=== PATIENT | female | born 1995 | race Caucasian/White ===

== ENCOUNTER 2018-09-04 17:24 | Emergency (ER) | payer OTHER, MEDICAID, SELFPAY ==
[2018-09-04 17:29] VITALS: BP 126/87; PULSE 89; RESP 16; TEMP 37; O2SAT 98; BMI 40.7
--- NOTE | 2018-09-04 18:34 | DI.US.S_ITS ---
PROCEDURE: US PELVIC COMPLETE INDICATIONS: PAIN TECHNIQUE: Real-time scanning was performed of the pelvic organs, with image documentation. Additional endovaginal scanning was necessary due to incomplete visualization of the adnexal and endometrial structures by transabdominal scanning. COMPARISON: None. FINDINGS: Transabdominal scanning: Limited scanning through the kidneys shows no hydronephrosis. No pathologic free abdominal or pelvic fluid. Endovaginal scanning: Uterus: Uterus is normal in size at 7.9 x 3.5 x 4.2 cm. The endometrium measures 7 mm in combined thickness. Ovaries: Right ovary measures 3.7 x 2.5 x 3.9 cm. It contains a mildly complex cyst measuring 2.3 x 1.9-1.9 cm. The left ovary measures 3.2 x 2.2 x 1.4 cm. There is physiologic fluid present in the pelvis. IMPRESSION: There is a relatively small probable hemorrhagic cyst of the right ovary. Otherwise unremarkable. Dictated by: Demond Garcia M.D. on 09/04/2018 at 19:59 Approved by: Demond Garcia M.D. on 09/04/2018 at 20:00
--- NOTE | 2018-09-04 18:47 | ED_ITS ---
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 She denies any dysuria urgency or frequency. she denies any vaginal discharge bleeding or sexually transmitted infection concerns. She states she has history of an ovarian cyst. Her last menstrual period was the beginning of July and lasted only 2 days. She denies any fevers nausea vomiting or diarrhea. She states that today the pain was so bad she could not walk. She states this pain has been going on since she was 15 years old, but got worse over the past few days. She states she has a history of an ovarian cyst. She denies any fevers. Review of Systems <RAMESH Parrish - Last Filed: 09/04/18 20:31> Review of Systems GENERAL: Denies chills, fatigue, malaise, fever, sweats. HEENT: Denies sinus pain, ear pain, sore throat, difficulty swallowing, dizziness. RESPIRATORY: Denies dyspnea, cough, wheezing, hemoptysis, sputum. CARDIOVASCULAR: Denies chest pain, palpitations, orthopnea, edema, GASTROINTESTINAL: See HPI : See HPI MUSCULOSKELETAL: denies weakness, joint pain, or bony pain SKIN: Denies rash, skin lesions, or other NEUROLOGIC: Denies weakness, headache, numbness, change in speech, confusion, seizures, incoordination. PSYCHIATRIC: No concerning psychosocial issues. 12 point review of systems is negative except for those stated above PFSH <RAMESH Parrish - Last Filed: 09/04/18 20:31> Medical History (Updated 09/04/18 @ 20:29 by RAMESH Parrish) Ovarian cyst (Acute) Social History Smoking Status: Never smoker Social History Smoking Status: Never smoker Exam <JERRY Parrish-BC - Last Filed: 09/04/18 20:31> Narrative Exam Narrative: GENERAL: Obese female lying on stretcher in no acute distress HEAD: Atraumatic. Normocephalic. No temporal or scalp tenderness. EYES: Pupils equal round and reactive. Extraocular motions intact. No scleral icterus. No injection or drainage. CARDIOVASCULAR: Regular rate and rhythm RESPIRATORY: Clear to auscultation. Breath sounds equal bilaterally. No wheezes, rales, or rhonchi. No cough. No increased respiratory effort. GASTROINTESTINAL: Abdomen soft, diffusely tender suprapubic area, nondistended. No hepato-splenomegaly, or palpable masses. No guarding. active bowel sounds all 4 quadrants. The EXTREMITIES: No clubbing, cyanosis, or edema. No joint tenderness, effusion, or edema noted. BACK: Nontender without deformity or crepitance. No flank tenderness. NEURO: AOx3. SKIN: No rash or erythema. Initial Vital Signs Initial Vital Signs: Vital Signs Temperature 98.6 F 09/04/18 17:29 Pulse Rate 89 09/04/18 17:29 Respiratory Rate 16 09/04/18 17:29 Blood Pressure 126/87 09/04/18 17:29 Pulse Oximetry 98 09/04/18 17:29 <Josefa Clemente DO - Last Filed: 09/05/18 00:35> Initial Vital Signs Initial Vital Signs: Vital Signs Temperature 98.6 F 09/04/18 17:29 Pulse Rate 89 09/04/18 17:29 Respiratory Rate 16 09/04/18 17:29 Blood Pressure 126/87 09/04/18 17:29 Pulse Oximetry 98 09/04/18 17:29 Course <JERRY Parrish-BC - Last Filed: 09/04/18 20:31> Orders Ordered: ED Orders 09/04/18 18:34 US pelvic complete Stat 09/04/18 18:45 Amylase Stat Complete Blood Count AUTO DIFF Stat Comprehensive Metabolic Panel Stat Lipase Stat Vital Signs - 8 hr 09/04/18 17:29 09/04/18 20:58 Temperature 98.6 F Pulse Rate 89 82 Respiratory Rate 16 20 Blood Pressure 126/87 123/77 Pulse Oximetry 98 98 <Josefa Clemente DO - Last Filed: 09/05/18 00:35> Orders Ordered: ED Orders 09/04/18 18:34 US pelvic complete Stat 09/04/18 18:45 Amylase Stat Complete Blood Count AUTO DIFF Stat Comprehensive Metabolic Panel Stat Lipase Stat Vital Signs - 8 hr 09/04/18 17:29 09/04/18 20:58 Temperature 98.6 F Pulse Rate 89 82 Respiratory Rate 16 20 Blood Pressure 126/87 123/77 Pulse Oximetry 98 98 MDM - Female Genitourinary <Margarita Omalley, SQL DATABASE PROGRAMMER- - Last Filed: 09/04/18 20:31> Lab Data Result diagrams: 09/04/18 18:45 09/04/18 18:45 Lab Results 09/04/18 09/04/18 Range/Units 18:45 18:45 WBC 10.9 (4.5-11.0) X10^3/uL RBC 4.22 (4.0-5.2) X10^6/uL Hgb 12.8 (12.0-16.0) g/dL Hct 38.5 (36-46) % MCV 91.3 (80-100) fL MCH 30.3 (26-34) PG MCHC 33.2 (30-36) % RDW 12.8 (11.6-14.8) % Plt Count 263 (150-400) X10^3/uL Neut % (Auto) 65.0 (50-75) % Lymph % (Auto) 24.8 L (25-40) % [place] % (Auto) 8.7 (3-14) % Eos % (Auto) 1.1 L (2-4) % Baso % (Auto) 0.4 (0-2) % Neut # (Auto) 7100 H (4935-8029) /uL Lymph # (Auto) 2700 (0289-3277) /uL [place] # (Auto) 900 (0-900) /uL Eos # (Auto) 100 (0-450) /uL Baso # (Auto) 0 (0-100) /uL Sodium 137 (137-145) mmol/L Potassium 3.8 (3.4-5.1) mmol/L Chloride 102 (98-107) mmol/L Carbon Dioxide 25 (22-32) mmol/L BUN 8 (7-17) mg/dL Creatinine 0.70 (0.52-1.04) mg/dL Estimated GFR > 60.0 (>60) mL/min BUN/Creatinine Ratio 11.4 (6-22) Glucose 79 (70-100) mg/dL Calcium 9.0 (8.4-10.2) mg/dL Total Bilirubin 0.4 (0.2-1.3) mg/dL AST 17 (14-36) IU/L ALT 21 (9-52) IU/L Alkaline Phosphatase 43 (38-126) U/L Total Protein 7.6 (6.3-8.2) g/dL Albumin 4.3 (3.5-5.0) g/dL Globulin 3.3 (1.7-4.1) g/dL Albumin/Globulin Ratio 1.3 (1.0-2.8) Amylase 46 (30-110) U/L Lipase 36 (23-300) U/L Point of Care Testing Test Results Negative Urine Dip Bedside Urine Glucose Negative Bedside Urine Bilirubin - Negative Bedside Urine Ketone - Negative Urine Specific [place] 1.015 Bedside Urine Occult Blood - Negative Bedside Urine pH 6.5 Bedside Urine Protein - Negative Bedside Urine Urobilinogen - Negative Bedside Urine Nitrite - Negative Bedside Urine Leukocytes - Negative Esterase Imaging Data pelvic us: Radiologist's impression: [address] [address] Ultrasound Report Signed Patient: Roro Patel RMR#: [id number] : 1995Acct:[id number] Age/Sex: 23 FDate of Service: 09/04/18 Loc: ED Accession Number: [id number] Procedure: US pelvic complete Ordering Provider: Margarita Omalley SQL DATABASE PROGRAMMER- PROCEDURE: US PELVIC COMPLETE INDICATIONS: PAIN TECHNIQUE: Real-time scanning was performed of the pelvic organs, with image documentation. Additional endovaginal scanning was necessary due to incomplete visualization of the adnexal and endometrial structures by transabdominal scanning. COMPARISON: None. FINDINGS: Transabdominal scanning: Limited scanning through the kidneys shows no hydronephrosis. No pathologic free abdominal or pelvic fluid. Endovaginal scanning: Uterus: Uterus is normal in size at 7.9 x 3.5 x 4.2 cm. The endometrium measures 7 mm in combined thickness. Ovaries: Right ovary measures 3.7 x 2.5 x 3.9 cm. It contains a mildly complex cyst measuring 2.3 x 1.9-1.9 cm. The left ovary measures 3.2 x 2.2 x 1.4 cm. There is physiologic fluid present in the pelvis. IMPRESSION: There is a relatively small probable hemorrhagic cyst of the right ovary. Otherwise unremarkable. Dictated by: Demond Garcia M.D. on 09/04/2018 at 19:59 Approved by: Demond Garcia M.D. on 09/04/2018 at 20:00 [facility] Narrative Medical decision making narrative: The patient is a 23-year-old female who presents with pelvic pain. she states she has had history of this pelvic pain since she was 15 years old, the she has had it for 8 years before presentation. She came in today because of encouragement by family. Lab work was grossly normal. Urine was normal. Ultrasound reveals a hemorrhagic right ovarian cyst. She is afebrile and hemodynamically stable. I discussed at length the possibility of pelvic inflammatory disease, but the patient states she is not at risk for sexually transmitted infections and does not want a pelvic exam today. She states she would rather go home. Discussed at length return precautions of worsening abdominal pain, fever with abdominal pain etc. Patient has no questions or concerns upon discharge and was given information for the health human resource advisor to help facilitate follow-up. <Josefa Clemente, - Last Filed: 09/05/18 00:35> Lab Data Lab Results 09/04/18 09/04/18 Range/Units 18:45 18:45 WBC 10.9 (4.5-11.0) X10^3/uL RBC 4.22 (4.0-5.2) X10^6/uL Hgb 12.8 (12.0-16.0) g/dL Hct 38.5 (36-46) % MCV 91.3 (80-100) fL MCH 30.3 (26-34) PG MCHC 33.2 (30-36) % RDW 12.8 (11.6-14.8) % Plt Count 263 (150-400) X10^3/uL Neut % (Auto) 65.0 (50-75) % Lymph % (Auto) 24.8 L (25-40) % [place] % (Auto) 8.7 (3-14) % Eos % (Auto) 1.1 L (2-4) % Baso % (Auto) 0.4 (0-2) % Neut # (Auto) 7100 H (7626-6693) /uL Lymph # (Auto) 2700 (7630-5293) /uL [place] # (Auto) 900 (0-900) /uL Eos # (Auto) 100 (0-450) /uL Baso # (Auto) 0 (0-100) /uL Sodium 137 (137-145) mmol/L Potassium 3.8 (3.4-5.1) mmol/L Chloride 102 (98-107) mmol/L Carbon Dioxide 25 (22-32) mmol/L BUN 8 (7-17) mg/dL Creatinine 0.70 (0.52-1.04) mg/dL Estimated GFR > 60.0 (>60) mL/min BUN/Creatinine Ratio 11.4 (6-22) Glucose 79 (70-100) mg/dL Calcium 9.0 (8.4-10.2) mg/dL Total Bilirubin 0.4 (0.2-1.3) mg/dL AST 17 (14-36) IU/L ALT 21 (9-52) IU/L Alkaline Phosphatase 43 (38-126) U/L Total Protein 7.6 (6.3-8.2) g/dL Albumin 4.3 (3.5-5.0) g/dL Globulin 3.3 (1.7-4.1) g/dL Albumin/Globulin Ratio 1.3 (1.0-2.8) Amylase 46 (30-110) U/L Lipase 36 (23-300) U/L Point of Care Testing Test Results Negative Urine Dip Bedside Urine Glucose Negative Bedside Urine Bilirubin - Negative Bedside Urine Ketone - Negative Urine Specific [place] 1.015 Bedside Urine Occult Blood - Negative Bedside Urine pH 6.5 Bedside Urine Protein - Negative Bedside Urine Urobilinogen - Negative Bedside Urine Nitrite - Negative Bedside Urine Leukocytes - Negative Esterase Discharge Plan Departure Patient Disposition: Home Clinical Impression: Cyst of right ovary Discharge Date/Time: 09/04/18 21:04 Interventions: ED Discharge Assessment Last Done: 09/04/18 20:58 Instructions: DI for Ovarian Cyst Activity Restrictions/Additional Instructions: Your lab work was normal. your urine has no signs of infection and her test was negative. Her ultrasound shows a small hemorrhagic cyst on her right ovary. Please follow up with the health human resource advisor at [phone] to help facilitate follow-up with a primary care provider. Please come back to emergency department for any acute concerns, such as sudden worsening pain, fever with abdominal pain etc. <Josefa Clemente, - Last Filed: 09/05/18 00:35> [facility] Kristian Attestation: I was immediately available in the department for consultation. Documentation has been reviewed. I agree with assessment and plan.
[2018-09-04 18:53] LABS: Add Manual Diff / Slide Review NO; Basophils Absolute Auto 0 /uL (0-100); Basophils Percent Auto 0.4 % (0-2); Eosinophils Absolute Auto 100 /uL (0-450); Eosinophils Percent Auto 1.1 % (2-4); Hematocrit 38.5 % (36-46); Hemoglobin 12.8 g/dL (12.0-16.0); Lymphocytes Absolute Auto 2700 /uL (1100-4500); Lymphocytes Percent Auto 24.8 % (25-40); Mean Corpuscular HGB Conc 33.2 % (30-36); Mean Corpuscular Hemoglobin 30.3 PG (26-34); Mean Corpuscular Volume 91.3 fL (80-100); Monocytes Absolute Auto 900 /uL (0-900); Monocytes Percent Auto 8.7 % (3-14); Neutrophils Absolute Auto 7100 /uL (1500-7000); Platelet Count 263 X10^3/uL (150-400); Red Blood Cell Count 4.22 X10^6/uL (4.0-5.2); Red Cell Distribution Width 12.8 % (11.6-14.8); White Blood Cell Count 10.9 X10^3/uL (4.5-11.0)
[2018-09-04 19:04] LABS: Alanine Aminotransferase 21 IU/L (9-52); Albumin 4.3 g/dL (3.5-5.0); Albumin Globulin Ratio 1.3 (1.0-2.8); Alkaline Phosphatase 43 U/L (38-126); Amylase 46 U/L (30-110); Aspartate Aminotransferase 17 IU/L (14-36); BUN Creatinine Ratio 11.4 (6-22); Bilirubin Total 0.4 mg/dL (0.2-1.3); Blood Urea Nitrogen 8 mg/dL (7-17); Carbon Dioxide 25 mmol/L (22-32); Chloride 102 mmol/L (98-107); Estimated Glomerular Filt Rate > 60.0 mL/min (>60); Globulin 3.3 g/dL (1.7-4.1); Glucose 79 mg/dL (70-100); HEMOLYSIS < 15 (0-50); Lipase 36 U/L (23-300); Potassium 3.8 mmol/L (3.4-5.1); Sodium 137 mmol/L (137-145); Total Protein 7.6 g/dL (6.3-8.2)
[2018-09-04 20:58] VITALS: BP 123/77; PULSE 82; RESP 20; O2SAT 98
== END 2018-09-04 21:04 | disposition home or self-care (01) ==
PROVIDERS: Emergency Provider Nurse Practitioner Family
DX: N83.201 Unspecified ovarian cyst, right side (principal)
CPT/HCPCS: 36415; 76830; 76856; 80053; 81003; 81025; 82150; 83690; 85025; 99282; 99284

== ENCOUNTER 2018-12-06 22:39 | Emergency (ER) | payer OTHER, MEDICAID, SELFPAY ==
[2018-12-06 22:46] VITALS: BP 144/86; PULSE 89; RESP 16; TEMP 36.6; O2SAT 100; BMI 40.7
--- NOTE | 2018-12-06 23:03 | ED_ITS ---
HPI - Allergic Reaction General Chief complaint: Allergic Reaction Stated complaint: ALLERGY REACTION LEFT BACK PAIN Time Seen by Provider: 12/06/18 22:47 Source: patient Mode of arrival: ambulatory Limitations: no limitations History of Present Illness HPI narrative: 23-year-old here for evaluation of potential allergic reaction. She states that the last several times she is in anything with sore way she has had which she thought has been allergic reaction. She has an appointment at the beginning of next week with her primary doctor to discuss referral to have allergy testing. This has happened several times in the past. States that today she ate some food which he thought had sore way in it. She developed some rashes on her arms. No problems breathing. No vomiting. She also states that she has chronic left lower back pain. Related Data Allergies Allergy/AdvReac Type Severity Reaction Status Date / Time No Known Drug Allergies Allergy Verified 12/06/18 22:54 Review of Systems Constitutional Denies fever(s) and Denies headache(s) ENT Ears, Nose, Mouth, and Throat: Denies headache(s) Cardiovascular Denies chest pain and Denies dyspnea Respiratory Denies dyspnea Gastrointestinal Gastrointestinal: Denies abdominal pain, Denies nausea and Denies vomiting Musculoskeletal Reports back pain Integumentary/Breasts Reports rash Neurologic Denies behavioral changes and Denies headache(s) Psychiatric Denies behavioral changes Hematologic/Lymphatic Denies easy bleeding and Denies easy bruising Allergic/Immunologic Reports urticaria [facility] Medical History Ovarian cyst (Acute) Social History Smoking Status: Never smoker Social History Smoking Status: Never smoker Exam Initial Vital Signs Initial Vital Signs: Vital Signs Temperature 97.9 F 12/06/18 22:46 Pulse Rate 89 12/06/18 22:46 Respiratory Rate 16 12/06/18 22:46 Blood Pressure 144/86 H 12/06/18 22:46 Pulse Oximetry 100 12/06/18 22:46 Const General: cooperative, comfortable, well developed and well groomed Orientation: alert, awake and oriented x3 HENMT Head: normal to inspection and normocephalic Resp Effort & Inspection: normal respiratory effort Auscultation: clear to auscultation bilaterally Cardio Rate: regular rate Rhythm: regular rhythm Back/Spine/Pelvis Thoracic/Lumbar Spine: paraspinal tenderness (Left-sided lumbar) Skin Lesions: no lesions Rashes: no rashes Neuro General: alert, awake and oriented x3 Cognition: normal cognition Speech: speech normal Motor: muscle tone normal throughout Extrem General: normal to inspection and capillary refill normal Psych Appearance: grossly normal and well kempt Course Vital Signs - 8 hr 12/06/18 22:46 12/06/18 23:10 Temperature 97.9 F Pulse Rate 89 85 Respiratory Rate 16 18 Blood Pressure 144/86 H 130/80 Pulse Oximetry 100 100 MDM - Allergic Reaction MDM Narrative Medical decision making narrative: Patient has muscular the left lower back pain. She has no rashes here in the ER. No signs of anaphylaxis or no signs of any other allergic reaction currently. Did discuss use of Claritin on a daily basis. She is going to keep her appointment the next week to talk the primary doctor. Will give prescription for an EpiPen per her request. She was given return precautions and follow-up instructions. She expressed understanding and agreement with plan. Discharge Plan Departure Patient Disposition: Home Clinical Impression: Allergic reaction Qualifiers: Encounter type: initial encounter Qualified Code(s): T78.40XA - Allergy, unspecified, initial encounter Back pain Qualifiers: Back pain location: low back pain Chronicity: acute Back pain laterality: left Sciatica presence: without sciatica Qualified Code(s): M54.5 - Low back pain Discharge Date/Time: 12/06/18 23:11 Interventions: ED Discharge Assessment Last Done: 12/06/18 23:10 Instructions: DI for General Allergic Reactions Activity Restrictions/Additional Instructions: Keep all of your scheduled medical appointments. I do recommend that you start taking a Claritin on a daily basis. You can also take Benadryl if the symptoms worsen. Return to the emergency department for any new or worsening symptoms
[2018-12-06 23:10] VITALS: BP 130/80; PULSE 85; RESP 18; O2SAT 100
== END 2018-12-06 23:11 | disposition home or self-care (01) ==
PROVIDERS: Emergency Provider Emergency Medicine
DX: T78.40XA Allergy, unspecified, initial encounter (principal); M54.5 Low back pain
CPT/HCPCS: 99282

== ENCOUNTER 2019-10-26 02:22 | Emergency (ER) | payer OTHER, MEDICAID, SELFPAY ==
[2019-10-26 02:31] VITALS: BP 177/86; PULSE 110; RESP 24; TEMP 36.7; O2SAT 100; BMI 43.0
--- NOTE | 2019-10-26 02:33 | DI.US.S_ITS ---
PROCEDURE: US PERIPH VENOUS UP EXTREM LT INDICATIONS: PAIN, SWELLING, REDNESS, ON CONTROL TECHNIQUE: Real-time imaging, as well as color and pulse Doppler interrogation, was performed of the left upper extremity deep veins from the inferior neck to the antecubital fossa. COMPARISON: None. FINDINGS: The internal jugular vein, visualized portions of the subclavian vein, axillary, and brachial veins are free of intraluminal thrombus. Where physically possible, the veins are normally compressible. Color and pulse Doppler demonstrate normal intraluminal flow, with expected phasicity and pulsatility. Additional scanning of the cephalic and basilic veins of the superficial system demonstrate normal compressibility, without thrombus. IMPRESSION: Negative left upper extremity deep venous ultrasound for DVT Comment: Preliminary findings were reported by the bargain table clerk to the referring provider at the time of study completion. Dictated by: Demond Garcia M.D. on 10/26/2019 at 6:39 Approved by: Demond Garcia M.D. on 10/26/2019 at 6:40
--- NOTE | 2019-10-26 02:37 | ED_ITS ---
HPI - Extremity Problem General Chief complaint: Extremity Problem,Nontraumatic Stated complaint: pain going up left arm Time Seen by Provider: 10/26/19 02:22 Source: patient Mode of arrival: Ambulatory Limitations: no limitations History of Present Illness HPI Narrative: 24-year-old female nonsmoker without chronic medical problems presents with her significant other and a chief complaint of left arm pain since noon. She denies any injury or overuse. She denies any abnormal activities. She denies any provocation or palliation. She denies any numbness, tingling or weakness. She states she has been on control for 3 years and she has a strong cardiac history and became concerned and wanted to be checked out. She denies any chest pain or shortness of breath. She denies dizziness, weakness or lightheadedness. She denies any exertional symptoms. She denies any recent travel, cough with hemoptysis or other. MD Complaint: extremity pain Onset (ago): hour(s) Pain Consistency: constant Location: left Quality: aching Radiation: proximal Relieving factors: rest Exacerbating factors: nothing Associated symptoms: denies other symptoms Related Data Allergies Allergy/AdvReac Type Severity Reaction Status Date / Time No Known Drug Allergies Allergy Verified 10/26/19 02:31 Review of Systems Constitutional Constitutional: Denies chills, Denies fatigue, Denies fever(s), Denies frequent falls, Denies lethargy and Denies weakness Eyes Eyes: Denies change in vision, Denies eye discharge, Denies irritation and Denies loss of vision ENT Ears, Nose, Mouth, and Throat: Denies change in voice, Denies dizziness, Denies neck pain, Denies sore throat and Denies throat swelling Cardiovascular Cardiovascular: Denies chest pain, Denies irregular heart rhythm, Denies lightheadedness, Denies palpitations, Denies dyspnea, Denies dyspnea on exertion and Denies orthopnea Respiratory Respiratory: Denies cough, Denies dyspnea, Denies dyspnea on exertion and Denies wheezing Gastrointestinal Gastrointestinal: Denies abdominal pain, Denies change in bowel habits, Denies diarrhea, Denies nausea and Denies vomiting Musculoskeletal Musculoskeletal: Denies neck pain and Denies numbness Comments: left arm pain Integumentary/Breasts Skin/Breast: Denies pruritus, Denies erythema, Denies rash and Denies wounds Neurologic Neurologic: Denies behavioral changes, Denies confusion, Denies dizziness, Denies frequent falls, Denies loss of vision, Denies numbness and Denies weakness Psychiatric Psychiatric: Denies anxiety, Denies behavioral changes, Denies confusion, Denies depression, Denies homicidal ideation and Denies suicidal ideation Endocrine Endocrine: Denies fatigue, Denies flushing and Denies palpitations Hematologic/Lymphatic Hematologic/Lymphatic: Denies easy bruising Allergic/Immunologic Allergic/Immunologic: Denies urticaria, Denies throat swelling and Denies wheezing Patient History Medical History Ovarian cyst (Acute) Social History Smoking Status: Never smoker Smoking Status: Never smoker Substance Use Type: does not use Exam Narrative Exam Narrative: GENERAL: [24] year old patient appears stated age. Well- nourished, well-developed patient, in mild distress. Anxious HEAD: Atraumatic. Normocephalic. EYES: Pupils equal round and reactive. Extraocular motions intact. No scleral icterus. No injection or drainage. ENT: Nose without bleeding, purulent drainage. Throat without erythema, tonsillar hypertrophy or exudate. Airway patent. NECK: Trachea midline. Non tender CARDIOVASCULAR: Regular rate and rhythm without murmurs, gallops, or rubs. RESPIRATORY: Clear to auscultation. Breath sounds equal bilaterally. No wheezes, rales, or rhonchi. GASTROINTESTINAL: Abdomen soft, non-tender, nondistended. EXTREMITIES: No edema or joint tenderness. Pain to palp of forearm, biceps. BACK: Nontender without deformity or crepitance. No flank tenderness. NEURO: AOx3. SKIN: No rash or erythema of visible areas Initial Vital Signs Initial Vital Signs: Vital Signs Temperature 98.0 F 10/26/19 02:31 Pulse Rate 110 H 10/26/19 02:31 Respiratory Rate 24 10/26/19 02:31 Blood Pressure 177/86 H 10/26/19 02:31 Pulse Oximetry 100 10/26/19 02:31 Course Orders Ordered: ED Orders 10/26/19 02:33 US periph venous up extrem lt Stat 10/26/19 02:37 EKG-12 Lead Stat 10/26/19 02:45 Basic Metabolic Panel Stat Complete Blood Count AUTO DIFF Stat D Dimer Stat NT-proBNP (BNP-Adult 18+) Stat Prothrombin Time INR Stat Troponin & CK Cardiac Panel Stat Discontinued Medications Hydrocodone Bitart/Acetaminophen (Vicodin 5/325 Prepack) 1 bottle MISC SEEINSTR ONE Stop: 10/26/19 03:59 Ketorolac Tromethamine (Toradol) 15 mg IV NOW ONE Stop: 10/26/19 02:32 Last Admin: 10/26/19 02:52 Dose: 15 mg Documented by: VEENA Vital Signs Vital signs: Vital Signs - 8 hr 10/26/19 02:31 10/26/19 03:07 Temperature 98.0 F Pulse Rate 110 H 89 Respiratory Rate 24 18 Blood Pressure 177/86 H Blood Pressure [Right Arm] 119/63 Pulse Oximetry 100 99 MDM - Extremity (Nontraumatic) Lab Data Result diagrams: 10/26/19 02:45 10/26/19 02:45 Labs: Lab Results 10/26/19 10/26/19 10/26/19 Range/Units 02:45 02:45 02:45 WBC 8.2 (4.5-11.0) X10^3/uL RBC 4.18 (4.0-5.2) X10^6/uL Hgb 13.4 (12.0-16.0) g/dL Hct 38.9 (36-46) % MCV 93.1 (80-100) fL MCH 32.1 (26-34) PG MCHC 34.5 (30-36) % RDW 12.8 (11.6-14.8) % Plt Count 231 (150-400) X10^3/uL Neut % (Auto) 54.0 (50-75) % Lymph % (Auto) 36.9 (25-40) % [place] % (Auto) 6.7 (3-14) % Eos % (Auto) 1.8 L (2-4) % Baso % (Auto) 0.6 (0-2) % Neut # (Auto) 4400 (1701-5817) /uL Lymph # (Auto) 3000 (2939-8619) /uL [place] # (Auto) 600 (0-900) /uL Eos # (Auto) 100 (0-450) /uL Baso # (Auto) 0 (0-100) /uL PT (10.1-12.7) SECONDS INR (0.9-1.3) D-Dimer < 200 (<230) ng/mL Sodium 138 (137-145) mmol/L Potassium 4.1 (3.4-5.1) mmol/L Chloride 107 (98-107) mmol/L Carbon Dioxide 22 (22-32) mmol/L BUN 11 (7-17) mg/dL Creatinine 0.65 (0.52-1.04) mg/dL Estimated GFR > 60.0 (>60) mL/min BUN/Creatinine Ratio 16.9 (6-22) Glucose 106 H (70-100) mg/dL Calcium 9.2 (8.4-10.2) mg/dL Total Creatine Kinase (30-135) U/L CK-MB (CK-2) (<2.37) ng/mL CK-MB (CK-2) Rel Index (1.5-5.0) % Troponin I (0.01-0.034) ng/mL NT-Pro-B Natriuret Pep 107 (<125) pg/mL 10/26/19 10/26/19 Range/Units 02:45 02:45 WBC (4.5-11.0) X10^3/uL RBC (4.0-5.2) X10^6/uL Hgb (12.0-16.0) g/dL Hct (36-46) % MCV (80-100) fL MCH (26-34) PG MCHC (30-36) % RDW (11.6-14.8) % Plt Count (150-400) X10^3/uL Neut % (Auto) (50-75) % Lymph % (Auto) (25-40) % [place] % (Auto) (3-14) % Eos % (Auto) (2-4) % Baso % (Auto) (0-2) % Neut # (Auto) (8591-1324) /uL Lymph # (Auto) (0734-5632) /uL [place] # (Auto) (0-900) /uL Eos # (Auto) (0-450) /uL Baso # (Auto) (0-100) /uL PT 10.8 (10.1-12.7) SECONDS INR 0.9 (0.9-1.3) D-Dimer (<230) ng/mL Sodium (137-145) mmol/L Potassium (3.4-5.1) mmol/L Chloride (98-107) mmol/L Carbon Dioxide (22-32) mmol/L BUN (7-17) mg/dL Creatinine (0.52-1.04) mg/dL Estimated GFR (>60) mL/min BUN/Creatinine Ratio (6-22) Glucose (70-100) mg/dL Calcium (8.4-10.2) mg/dL Total Creatine Kinase 124 (30-135) U/L CK-MB (CK-2) 0.41 (<2.37) ng/mL CK-MB (CK-2) Rel Index 0.3 L (1.5-5.0) % Troponin I < 0.012 (0.01-0.034) ng/mL NT-Pro-B Natriuret Pep (<125) pg/mL MDM Narrative Medical decision making narrative: Multiple etiologies for patient's symptoms considered including: [Cardiac ischemia, thought less likely given lack of ischemic symptoms, reproducible pain on palpation, nonischemic EKG and normal troponin. DVT considered but thought less likely given normal D-dimer and lack of findings on ultrasound. Cellulitis considered but thought less likely given lack of redness, warmth, swelling or elevation of white blood cells. Other diagnoses such as musculoskeletal injury thought (at this point) most likely] Patient's symptoms improved or duration of stay with above-stated therapies. Findings and discharge diagnosis discussed with patient/family followed by verbalization of understanding Return precautions discussed with patient/family whom verbalize understanding. Discharge Plan Departure Patient Disposition: Home Clinical Impression: Arm pain, left Instructions: DI for Arm Pain Activity Restrictions/Additional Instructions: *You have been diagnosed with [ left arm pain. Your story, exam, labs and imaging are very reassuring. Multiple diagnoses considered such as hear attack, blood clot, and infection, but they are thought to be much less likely given the results of our exam ] *What to do: *Take medications as directed *Follow up with your primary care provider in 2-3 days, call for an appointment. Let them know you were seen in the Emergency Department and that we ask that you be seen in follow up *Return to ER if you should have any new, worsening or concerning symptoms, such as [increasing pain, redness, swelling, presence of chest pain, shortness of breath, passing out or other bothersome symptoms]
[2019-10-26] MEDS: KETOROLAC 60 MG/2 ML VIAL 15 MG IV (02:52)
[2019-10-26 03:00] LABS: Add Manual Diff / Slide Review NO; Basophils Absolute Auto 0 /uL (0-100); Basophils Percent Auto 0.6 % (0-2); Eosinophils Absolute Auto 100 /uL (0-450); Eosinophils Percent Auto 1.8 % (2-4); Hematocrit 38.9 % (36-46); Hemoglobin 13.4 g/dL (12.0-16.0); Lymphocytes Absolute Auto 3000 /uL (1100-4500); Lymphocytes Percent Auto 36.9 % (25-40); Mean Corpuscular HGB Conc 34.5 % (30-36); Mean Corpuscular Hemoglobin 32.1 PG (26-34); Mean Corpuscular Volume 93.1 fL (80-100); Monocytes Absolute Auto 600 /uL (0-900); Monocytes Percent Auto 6.7 % (3-14); Neutrophils Absolute Auto 4400 /uL (1500-7000); Platelet Count 231 X10^3/uL (150-400); Red Blood Cell Count 4.18 X10^6/uL (4.0-5.2); Red Cell Distribution Width 12.8 % (11.6-14.8); White Blood Cell Count 8.2 X10^3/uL (4.5-11.0)
[2019-10-26 03:07] VITALS: BP 119/63; PULSE 89; RESP 18; O2SAT 99
[2019-10-26 03:11] LABS: Creatine Kinase 124 U/L (30-135)
[2019-10-26 03:12] LABS: BUN Creatinine Ratio 16.9 (6-22); Blood Urea Nitrogen 11 mg/dL (7-17); Calcium 9.2 mg/dL (8.4-10.2); Carbon Dioxide 22 mmol/L (22-32); Chloride 107 mmol/L (98-107); Estimated Glomerular Filt Rate > 60.0 mL/min (>60); Glucose 106 mg/dL (70-100); HEMOLYSIS < 15 (0-50); INR 0.9 (0.9-1.3); Potassium 4.1 mmol/L (3.4-5.1); Prothrombin Time 10.8 SECONDS (10.1-12.7); Sodium 138 mmol/L (137-145)
[2019-10-26 03:21] LABS: NT-proBNP (BNP-Adult 18+) 107 pg/mL (<125)
[2019-10-26 03:22] LABS: D Dimer < 200 ng/mL (<230)
[2019-10-26 03:23] LABS: Troponin I < 0.012 ng/mL (0.01-0.034)
[2019-10-26 03:26] LABS: CKMB % Relative Index 0.3 % (1.5-5.0); Creatine Kinase MB 0.41 ng/mL (<2.37)
[2019-10-26] MEDS: HYDROCODONE/ACET 5/325 PREPACK 1 BOTTLE MISC (04:08)
[2019-10-26 04:09] VITALS: BP 120/78; PULSE 84; RESP 18; O2SAT 100
== END 2019-10-26 04:17 | disposition home or self-care (01) ==
PROVIDERS: Emergency Provider Emergency Medicine
DX: M79.602 Pain in left arm (principal); R07.9 Chest pain, unspecified
CPT/HCPCS: 36415; 80048; 82550; 82553; 83880; 84484; 85025; 85379; 85610; 93005; 93971; 96374; 99284; J1885

== ENCOUNTER 2020-08-10 17:07 | Emergency (ER) | payer OTHER, MEDICAID, SELFPAY ==
[2020-08-10 17:17] VITALS: BP 143/90; PULSE 91; RESP 18; TEMP 36.6; O2SAT 100
--- NOTE | 2020-08-10 18:58 | ED.RECABL ---
HPI - Recheck/Abnormal Lab/Rx General Chief Complaint: Recheck/Abnormal Lab/Rx Stated Complaint: facial numbness, recent fever after covid vaccine Time Seen by Provider: 08/10/20 17:25 Source: patient Mode of arrival: Ambulatory Limitations: no limitations History of Present Illness HPI narrative: Patient is a 25-year-old female approximately 4 days after receiving the [employer] COVID-19 vaccine. She states that after she received the vaccine for approximately 48 hours she did have some fevers and body aches. She states she expected that. Yesterday she started to feel better however he over the past 12 hours has developed a right-sided headache. She also has tingling no right side of her face that she describes as a ?web ?sensation she also has he muscle aches and cramping in her lower extremities. She has had headaches in the past. She normally just takes Excedrin migraine for them. She does have multiple headaches a week. She normally does not have tingling in her face when the headaches occur. She has not tried anything for her current symptoms Related Data Allergies Allergy/AdvReac Type Severity Reaction Status Date / Time No Known Drug Allergies Allergy Verified 10/26/19 02:31 Review of Systems Constitutional Constitutional: Reports body ache(s), Denies chills, Denies fever(s) and Reports headache(s) Eyes Eyes: Reports photophobia ENT Ears, Nose, Mouth, and Throat: Reports headache(s) and Denies sore throat Cardiovascular Cardiovascular: Denies chest pain and Denies dyspnea Respiratory Respiratory: Denies dyspnea Gastrointestinal Gastrointestinal: Denies abdominal pain, Denies nausea and Denies vomiting Genitourinary Genitourinary: Denies dysuria Genitourinary: Denies dysuria Musculoskeletal Musculoskeletal: Reports arthralgias and Reports myalgias Integumentary/Breasts Skin/Breast: Denies lesions and Denies rash Neurologic Neurologic: Denies behavioral changes and Reports headache(s) Psychiatric Psychiatric: Denies behavioral changes Hematologic/Lymphatic On Anticoagulants: No Allergic/Immunologic Allergic/Immunologic: Denies urticaria Patient History Medical History Ovarian cyst Social History Smoking Status: Never smoker Smoking Status: Never smoker Substance Use Type: does not use Exam Initial Vital Signs Initial Vital Signs: Vital Signs Temperature 97.9 F 08/10/20 17:17 Pulse Rate 91 H 08/10/20 17:17 Respiratory Rate 18 08/10/20 17:17 Blood Pressure 143/90 H 08/10/20 17:17 Pulse Oximetry 100 08/10/20 17:17 Const General: cooperative and comfortable Limitations: mental status not altered HENOH Head: normal to inspection and normocephalic Eyes General: appearance normal, both eyes and all related structures Resp Effort & Inspection: normal respiratory effort Auscultation: clear to auscultation bilaterally Cardio Rate: regular rate Rhythm: regular rhythm GI Inspection: normal to inspection Skin Lesions: no lesions Rashes: no rashes Neuro General: patient alert, patient awake and patient oriented x3 Cranial Nerves: CN's II-XI intact bilaterally Cognition: normal cognition Speech: speech normal Sensory Exam: no sensory deficits noted Extrem General: normal to inspection and capillary refill normal Psych Appearance: grossly normal and well kempt Course Orders Ordered: Discontinued Medications Sumatriptan Succinate (Sumatriptan 6 Mg/0.5 Ml Vial) 6 mg SUBCUT NOW ONE Stop: 08/10/20 18:59 Last Admin: 08/10/20 19:07 Dose: 6 mg Documented by: TYSHAWN Vital Signs Vital signs: Vital Signs - 8 hr 08/10/20 17:17 08/10/20 20:28 Temperature 97.9 F Pulse Rate 91 H 84 Respiratory Rate 18 18 Blood Pressure 143/90 H 141/88 H Pulse Oximetry 100 98 MDM - Recheck/Abnormal Lab/Rx MDM Narrative Medical decision making narrative: And discussion with the patient regarding her symptoms. I am unsure whether not the symptoms today are related to the COVID vaccine that she received 4 days ago. She has had migraine headaches in the past. I suspect that her symptoms today are related to a migraine headache which very well could be triggered because of the body aches and fevers from the vaccine. Low suspicion for CVA. She reported a almost complete resolution of her symptoms after the Imitrex. Informed her that she should talk with her primary doctor as there are things that can be done because of her almost weekly headaches. She was given return precautions. I feel that we can hold on any radiologic studies for now. She expressed understanding agreement. Discharge Plan Departure Patient Disposition: Home Clinical Impression: Headache, Facial paresthesia Instructions: Migraine -- Adult Activity Restrictions/Additional Instructions: I recommend that you contact your primary doctor as there could potentially be some medications that will help with your frequent headaches. Be sure to increase your fluid intake. He can take Tylenol/ibuprofen for any body aches or fevers. Return to the emergency department for any new or worsening symptoms
[2020-08-10] MEDS: SUMAtriptan 6 MG/0.5 ML VIAL SUBCUT (19:07)
--- NOTE | 2020-08-10 19:09 | PC.NURSE ---
Her due to h/a and facial numbness immediately after covid vaccine on the .Still with those symptoms.
--- NOTE | 2020-08-10 19:43 | PC.NURSE ---
Pain free and nausea and h/a free.
[2020-08-10 20:28] VITALS: BP 141/88; PULSE 84; RESP 18; O2SAT 98
== END 2020-08-10 20:37 | disposition home or self-care (01) ==
PROVIDERS: Emergency Provider Emergency Medicine; Referring Provider Family Medicine
DX: R51.9 Headache, unspecified (principal); R20.2 Paresthesia of skin
CPT/HCPCS: 96372; 99281; 99283; J3030

== ENCOUNTER 2020-10-05 14:43 | Emergency (ER) | payer OTHER, MEDICAID, SELFPAY ==
[2020-10-05 14:45] VITALS: BP 156/95; PULSE 114; RESP 18; TEMP 36.9; O2SAT 100; BMI 41.6
--- NOTE | 2020-10-05 14:57 | DI.RAD.S_ITS ---
PROCEDURE: XR ANKLE RT MIN 3V INDICATIONS: Fall TECHNIQUE: 3 views of the ankle were acquired. COMPARISON: None. FINDINGS: Bones: No fractures or dislocations. Widening of the medial ankle mortise. No suspicious bony lesions. Calcaneal spurring. Soft tissues: No tibiotalar joint effusion. Achilles tendon appears normal. IMPRESSION: 1. No fracture. 2. Widening of the medial ankle mortise, suggestive of ligamentous injury. Dictated by: Supa Martinez M.D. on 10/05/2020 at 15:14 Approved by: Supa Martinez M.D. on 10/05/2020 at 15:15
--- NOTE | 2020-10-05 15:18 | ED_ITS ---
HPI - Extremity Injury (Lower) General Chief Complaint: Extremity Injury, Lower Stated Complaint: fell, right ankle/foot pain Time Seen by Provider: 10/05/20 15:08 Source: patient and family Mode of arrival: Wheelchair Limitations: no limitations History of Present Illness HPI Narrative: Patient is a 25-year-old female here for evaluation of a left ankle injury. Patient states that she was out hiking and tripped and fell forgot her right ankle twisted underneath her. Did put pressure on it however has been extremely uncomfortable since that time. Has not taken anything for her symptoms. No other injuries reported from the event. Related Data Allergies Allergy/AdvReac Type Severity Reaction Status Date / Time No Known Drug Allergies Allergy Verified 10/26/19 02:31 Review of Systems Constitutional Constitutional: Denies headache(s) ENT Ears, Nose, Mouth, and Throat: Denies headache(s) Musculoskeletal Comments: Right ankle pain Integumentary/Breasts Skin/Breast: Denies lesions and Denies rash Neurologic Neurologic: Denies headache(s) Hematologic/Lymphatic On Anticoagulants: No Allergic/Immunologic Allergic/Immunologic: Reports system reviewed and no additional complaints, except as documented Patient History Medical History (Updated 10/05/20 @ 15:41 by Bennett Solares DO) Ovarian cyst Social History Smoking Status: Never smoker Smoking Status: Never smoker Substance Use Type: does not use Exam Initial Vital Signs Initial Vital Signs: Vital Signs Temperature 98.4 F 10/05/20 14:45 Pulse Rate 114 H 10/05/20 14:45 Respiratory Rate 18 10/05/20 14:45 Blood Pressure 156/95 H 10/05/20 14:45 Pulse Oximetry 100 10/05/20 14:45 Const General: cooperative Limitations: mental status not altered HENTN Head: normal to inspection and normocephalic Cardio Pulses: radial pulses present on the right Skin Lesions: no lesions Rashes: no rashes Neuro Sensory Exam: no sensory deficits noted Extrem Other: No proximal fibula tenderness. Achilles tendon appears to be intact. Tenderness to palpation along the lateral malleolus and also along the midfoot but not along the Lisfranc joint. Medial malleolus has minimal tenderness. Psych Appearance: grossly normal and well kempt Procedures Orthopedic Splinting/Casting Injury #1: Side: right Lower Extremity Injury Location: ankle Lower Extremity Immobilizer: Jorge wrap Other Orthopedic Equipment: crutches Post splinting neuro exam: intact Post splinting vascular exam: intact Placed by: Nursing Course Orders Ordered: ED Orders 10/05/20 14:57 XR ankle RT min 3V Stat Hydrocodone Bitart/Acetaminophen (Hydrocodone/Acet 5/325 Tablet) 1 tab PO NOW ONE Stop: 10/05/20 15:37 Vital Signs Vital signs: Vital Signs - 8 hr 10/05/20 14:45 Temperature 98.4 F Pulse Rate 114 H Respiratory Rate 18 Blood Pressure 156/95 H Pulse Oximetry 100 MDM - Extremity Injury (Lower) Imaging Data Extremity x-ray #1: Radiologist's Impression: [address] [id number] ReportSigned Patient: Roro Patel RMR#: [id number]: 1995Acct:[id number]/Sex: 25 / FDate of Service: 10/05/20Loc: EDAccession Number: [id number] Procedure: XR ankle RT min 3V Ordering Provider: Bennett Solares D.O. PROCEDURE: XR ANKLE RT MIN 3V INDICATIONS: Fall TECHNIQUE: 3 views of the ankle were acquired. COMPARISON: None. FINDINGS: Bones: No fractures or dislocations. Widening of the medial ankle mortise. No suspicious bony lesions. Calcaneal spurring. Soft tissues: No tibiotalar joint effusion. Achilles tendon appears normal. IMPRESSION: 1. No fracture. 2. Widening of the medial ankle mortise, suggestive of ligamentous injury. Dictated by: Supa Martinez M.D. on 10/05/2020 at 15:14 Approved by: Supa Martinez M.D. on 10/05/2020 at 15:15 [facility] Narrative Medical decision making narrative: Patient is neurovascularly intact no fractures noted on the x-ray however given her history her physical exam and the x-ray I do have concern about ligamentous injury. I did discuss this with her. She was given an Jorge bandage and crutches for her comfort. Will have her contact her primary doctor. She was instructed that if her symptoms are not improving within the next it couple days that she should return to the emergency department for a re-x-ray. She expressed understanding and agreement. Discharge Plan Departure Patient Disposition: Home Clinical Impression: Ankle sprain and strain Instructions: How to Use Crutches, DI for Ankle Sprain, How to Apply an Elastic Wrap on Ankle Activity Restrictions/Additional Instructions: There were no fractures noted on the x-rays however I do recommend that for the next couple days you keep your ankle elevated. Use ice. You could take anti-inflammatories. Contact your primary doctor for follow-up. Return to the emergency department for any new or worsening symptoms Referrals: Jo-Ann Cortés DO [Primary Care Provider] - Stand Alone Forms: Work Release Note
[2020-10-05] MEDS: HYDROCODONE/ACET 5/325 TABLET 1 TAB PO (15:39)
== END 2020-10-05 15:56 | disposition home or self-care (01) ==
PROVIDERS: Emergency Provider Emergency Medicine; PCP Family Medicine
DX: S93.401A Sprain of unspecified ligament of right ankle, initial encounter (principal); S96.911A Strain of unspecified muscle and tendon at ankle and foot level, right foot, initial encounter; W19.XXXA Unspecified fall, initial encounter
CPT/HCPCS: 73610; 99283; 99284